=== PATIENT | female | born 1945 | race Caucasian/White ===

== ENCOUNTER 2017-06-02 11:37 | Day surgery (SDC) | payer MEDICARE ==
[~2017-06-02] VITALS: Ht 180.3 cm; Wt 78.0 kg
[~2017-06-02 11:37] MED LIST: GABAPENTIN300 MG PO; GLIPIZIDE ER2.5 MG PO; LISINOPRIL10 MG PO; ULTRAM50 MG PO; VENTOLIN HFA18 GM INH
[2017-06-02] MEDS ORDERED: NORCO 5-325 TA1 EACH PO (12:10)
--- NOTE | 2017-06-02 13:37 | NUR ---
06/02/17 1337 Dede Steele PT ARRIVED IN PACU WIDE AWAKE. ABD SOFT. BLOOD SUGAR 133.
--- NOTE | 2017-06-02 17:51 | OR ---
[facility] [address] [place], [place] [address] Signed DATE OF OPERATION: 06/02/2017 SURGEON: Keisha Mcdermott MD PREOPERATIVE DIAGNOSIS: Colon screening. POSTOPERATIVE DIAGNOSES: 1. Diverticular changes to sigmoid and transverse colon. 2. Sessile polyp at the ileocecal valve (excised). 3. Internal hemorrhoid x1. PROCEDURE: Total colonoscopy to cecum with hot snare polypectomy x1. ANESTHESIA: Intravenous sedation fentanyl 150 mcg and Versed 6 mg. INDICATION: This 71-year-old white woman is a patient of Dr. Keisha Spear. She underwent colonoscopy for screening greater than 10 years ago in [place], [place], which was said to be normal. She has no family history of colon cancer and is symptom-free currently. She does have family history of colon cancer in a paternal aunt. She is admitted at this time to undergo screening colonoscopy and understands the risks of bleeding, infection, and perforation. She has had joint implant replacement therapy and on that basis, antibiotic therapy was given preoperatively. FINDINGS: The prep was excellent. Complete colonoscopy was undertaken to the cecum. Brief entry into the ileocecal valve found it to be normal as well. A sessile polyp was noted of the ileocecal valve, which was excised with hot snare polypectomy technique. There were diverticular changes of the transverse colon and left colon and sigmoid to a degree, but not extensive. Retroflexed view confirmed an internal hemorrhoid that was not problematic. DESCRIPTION OF PROCEDURE: The patient was brought to the endoscopy suite, placed in the lateral decubitus position, and given intravenous sedation to the point of slurred speech and nystagmus. Digital rectal examination was normal. The Olympus video colonoscope was passed in the rectum and manipulated throughout the colon, ultimately intubating the cecum itself. Irrigation Electronically Signed By: KEISHA MCDERMOTT MD 06/02/17 1751 PATIENT NAME: MAYRA QUINONES OPERATIVE REPORT DATE OF : 49 PHYSICIAN: KEISHA MCDERMOTT MD REPORT #: [id number] REPORT IS CONFIDENTIAL AND NOT TO BE RELEASED WITHOUT AUTHORIZATION [facility] [address] [place], [place] [address] Signed was undertaken as needed. The prep was quite good. The ileocecal valve was normal and the scope was passed into, the ileum appeared normal. Scope was withdrawn and a sessile polyp was noted in the ileocecal valve. Narrow band imaging confirmed it to be probably an adenoma. Using hot snare polypectomy technique, it was excised. It was passed for pathology. The scope was further withdrawn from that area and examination throughout undertaken quite thoroughly. In the transverse colon, there were few diverticular changes as were present also in the sigmoid and left colon. Retroflexed view in the rectum confirmed an internal hemorrhoidal change, but no sign of thrombosis or bleeding. The scope was removed and the patient was taken to recovery room in good condition. CONCLUDING DIAGNOSES: 1. Diverticular changes, limited. 2. Sessile polyp, 1 cm at ileocecal valve, excised. 3. Internal hemorrhoids. PLAN: Recommend high-fiber diet. Recommend repeat colonoscopy in 5 years or sooner if clinically indicated. She will return to the ongoing care of Dr. Spear otherwise. Keisha Mcdermott MD JM/MODL /[id number] cc: Arnav Spear MD Electronically Signed By: KEISHA MCDERMOTT MD 06/02/17 1751 PATIENT NAME: MAYRA QUINONES Kaden OPERATIVE REPORT DATE OF : 49 PHYSICIAN: KEISHA MCDERMOTT MD REPORT #: [id number] REPORT IS CONFIDENTIAL AND NOT TO BE RELEASED WITHOUT AUTHORIZATION
== END 2017-06-02 14:00 | disposition home or self-care (01) ==
LOC: OPS 11:37 → DS 11:37 → OPS 13:00
PROVIDERS: Surgery
PROC: 0DBH8ZX Excision of Cecum, Via Natural or Artificial Opening Endoscopic, Diagnostic (ICD-10-PCS; principal; 2017-06-02 13:00)
DX: Z12.11 Encounter for screening for malignant neoplasm of colon (principal); D12.0 Benign neoplasm of cecum; K57.30 Diverticulosis of large intestine without perforation or abscess without bleeding; K64.8 Other hemorrhoids; E11.9 Type 2 diabetes mellitus without complications; J45.909 Unspecified asthma, uncomplicated; I10 Essential (primary) hypertension; K21.9 Gastro-esophageal reflux disease without esophagitis; Z87.891 Personal history of nicotine dependence; Z91.040 Latex allergy status; Z88.8 Allergy status to other drugs, medicaments and biological substances; Z91.041 Radiographic dye allergy status; Z96.653 Presence of artificial knee joint, bilateral; Z88.1 Allergy status to other antibiotic agents; Z90.49 Acquired absence of other specified parts of digestive tract; Z98.890 Other specified postprocedural states; Z79.899 Other long term (current) drug therapy
CPT/HCPCS: 88305; 99153; G0500; J2250; J3010; J7120

== ENCOUNTER 2018-06-12 12:56 | Emergency (ER) | payer MEDICARE ==
[~2018-06-12] VITALS: Ht 180.3 cm; Wt 78.0 kg
[~2018-06-12 12:56] MED LIST changes: +NORCO 5-325 TA1 EACH PO
== END 2018-06-12 14:49 | disposition home or self-care (01) ==
LOC: ED 12:56
DX: I83.813 Varicose veins of bilateral lower extremities with pain (principal); Z86.718 Personal history of other venous thrombosis and embolism; Z87.891 Personal history of nicotine dependence; Z90.49 Acquired absence of other specified parts of digestive tract; Z88.0 Allergy status to penicillin; Z88.1 Allergy status to other antibiotic agents; Z88.8 Allergy status to other drugs, medicaments and biological substances; Z91.040 Latex allergy status; Z91.048 Other nonmedicinal substance allergy status; Z79.899 Other long term (current) drug therapy
CPT/HCPCS: 93971; 99283-25

== ENCOUNTER 2020-07-30 06:18 | Day surgery (SDC) | payer MEDICARE ==
[~2020-07-30] VITALS: Ht 180.3 cm; Wt 76.0 kg
--- NOTE | ~2020-07-30 | OR ---
[facility] [address] [place], [place] [address] Draft DATE OF OPERATION: 07/30/2020 SURGEON: Keisha Mcdermott MD PREOPERATIVE DIAGNOSES: 1. History of tubular adenoma, 2018. 2. History of joint replacement. POSTOPERATIVE DIAGNOSES: 1. Sigmoid and left-sided diverticulosis. 2. Normal-appearing ileum. 3. Appendiceal orifice and nodule, soft, suggestive of inverted appendiceal base or lipoma. PROCEDURE: Total colonoscopy to cecum with biopsies. ANESTHESIA: Intravenous sedation with fentanyl 100 mcg, Versed 7 mg, preoperative clindamycin 600 mg. INDICATION: A 75-year-old white woman is a patient of Dr. Piper Spear and known to me from the past having undergone colonoscopy with excision of a tubular adenoma in 2018. She is here for surveillance colonoscopy. She has no symptoms of bleeding, diarrhea, or constipation and no family history of colon cancer. She understands risks and benefits of colonoscopy including, but not limited to bleeding, infection, and perforation risks and wishes to proceed. FINDINGS: The prep was good. Complete colonoscopy was undertaken of the cecum and intubation of the ileum was accomplished as well. There was a smooth nodule noted at the appendiceal orifice which was able to be inverted back into the appendiceal orifice largely. Biopsies were taken over that site, though it might represent an inverted appendiceal stump, though I have no information of her having had appendectomy in the past at this time. The ileum was normal. The remaining colon was normal except for diverticular changes of sigmoid and left colon. There were no signs of polyps. DESCRIPTION OF PROCEDURE: The patient was brought to the endoscopy suite and placed in lateral decubitus position, given intravenous sedation to the point of slurred speech and nystagmus with full PATIENT NAME: MAYRA QUINONES OPERATIVE REPORT DATE OF : 49 REPORT #: [id number] PHYSICIAN: KEISHA MCDERMOTT MD PCP: PIPER SPEAR MD REPORT IS CONFIDENTIAL AND NOT TO BE RELEASED WITHOUT AUTHORIZATION [facility] [address] [place], [place] [address] Draft cardiopulmonary monitoring. Digital rectal examination was normal. An Olympus video colonoscope was passed in the rectum and manipulated throughout the colon noting diverticula of the sigmoid and left colon. Scope was ultimately advanced to the cecum, prominent and notable was a smooth nodule, which was at first suggestive of polyp, but it clearly emanated from the appendiceal orifice. The biopsies including deeper biopsies were taken of the nodule. It was most consistent with lipoma. It was manipulated to essentially return to the appendiceal orifice area, but may represent either a lipoma or inverted appendiceal stump most likely. There was no stigmata of carcinoid tumor. The scope was withdrawn a bit and inserted into the ileum. The terminal ileum appeared normal. Biopsies were taken there nevertheless. The scope was then withdrawn to the cecum. The area once again evaluated and the scope then withdrawn more fully. Examination upon withdrawal of scope showed no sign of abnormality other than the diverticular changes of the left colon and sigmoid. The rectum was normal except for internal hemorrhoids. The scope was removed and the patient was taken to recovery room in good condition. CONCLUDING DIAGNOSES: 1. Diverticulosis in sigmoid and left colon. 2. Normal-appearing ileum. 3. Appendiceal orifice, submucosal soft tissue mass, possibly lipoma. PLAN: She will see us back in about 4 weeks and review her pathology visit more about the appendiceal orifice abnormality which likely is benign consequence. I would recommend a repeat colonoscopy in 5 years based on prior polyp history. MD STEPHANIE Jackson/MODL /[id number] cc: Piper Spear MD Copies: PIPER SPEAR MD PATIENT NAME: MAYRA QUINONES OPERATIVE REPORT DATE OF : 49 REPORT #: [id number] PHYSICIAN: KEISHA MCDERMOTT MD PCP: PIPER SPEAR MD REPORT IS CONFIDENTIAL AND NOT TO BE RELEASED WITHOUT AUTHORIZATION [facility] [address] [place] [address] [place], [place] [address] Draft ~ PATIENT NAME: MAYRA QUINONES OPERATIVE REPORT DATE OF : 49 REPORT #: [id number] PHYSICIAN: KEISHA MCDERMOTT MD PCP: PIPER SPEAR MD REPORT IS CONFIDENTIAL AND NOT TO BE RELEASED WITHOUT AUTHORIZATION
[2020-07-30] MEDS ORDERED: VENLAFAXINE HCL75 M1 PO (06:38)
--- NOTE | 2020-07-30 08:19 | NUR ---
07/30/20 0819 Leonarda Monaco 0808 PATIENT INTO PACU, APPEARS DROWSY, AWAKE ON AND OFF. REPORTS NO PAIN, ENCOURAGED DEEP BREATHS. APPEARS TO HAVE ACTIVE FLATUANCE. 0814 PATIENT AWAKE ON AND OFF. VSS. ENCOURAGED PATIENT TO TAKE DEEP BREATHS. CBG 214.
--- NOTE | 2020-07-30 10:22 | NUR ---
PT TAKEN TO SCOPE RM, REMAINED IN RM. PT SEEMS COMFORTABLE, ALL QUESTIONS ASKED ANSWERED. GAVE BLESSING AND WILL FOLLOW
--- NOTE | 2020-07-31 12:17 | PATH ---
[facility] [address] [place], [place] [address] Signed SPECIMEN(S): A SUBMUCOSAL LIPOMA OF CECUM BIOPSY SPECIMEN(S): B ILEUM BIOPSY SPECIMEN SOURCE: A. SUBMUCOSAL LIPOMA OF CECUM BIOPSY B. ILEUM BIOPSY CLINICAL HISTORY: Pre: Colon screening; hx of tubular adenoma 2018. Post: diverticulosis, appendicle orifice lipoma. MICROSCOPIC DESCRIPTION: Histologic sections of all submitted blocks are examined by light microscopy. These findings, together with the gross examination, support the pathologic diagnosis. FINAL PATHOLOGIC DIAGNOSIS: A. Cecum, possible submucosal lipoma, biopsy: - Superficial fragments of colonic mucosa with minimal hyperplastic-type change. - Submucosal tissue is not identified. B. Ileum, biopsy: - Small bowel mucosa with intact villous architecture. - Negative for ileitis, dysplasia or malignancy. DS:caw:C2NR GROSS DESCRIPTION: Two specimens are received in two containers, labeled "SS." A. The specimen, labeled "SS, 1," and designated on the requisition "submucosal lipoma of cecum," is received in formalin and consists of multiple butler soft tissue fragment(s) that measure less than 0.1-0.5 cm in greatest dimension. The specimen is entirely submitted in cassette (A1). B. The specimen, labeled "SS, 2," and designated on the requisition "ileum biopsy," is received in formalin and consists of one butler soft tissue fragment(s) that measure 0.4 cm in greatest dimension. The specimen is entirely submitted in cassette (B1). AI (under the direct supervision of a pathologist) The Gross Description was prepared using a voice recognition system. The report was reviewed for accuracy; however, sound-alike word errors, addition and/or deletions may occur. If there is any question about this report, please contact Client Services. PATIENT NAME: MAYRA QUINONES PATHOLOGY DATE OF : 49 REPORT #: [id number] PHYSICIAN: FAVIAN CUEVAS PCP: PIPER SHEN MD REPORT IS CONFIDENTIAL AND NOT TO BE RELEASED WITHOUT AUTHORIZATION [facility] [address] [place], [place] [address] Signed PERFORMING LABORATORY: The technical component was performed by [employer], [address] [place] [address] (Info Specialist: Steff Brown MD; CLIA# [id number]). Professional interpretation was performed by [employer], [facility], [address] [place] [address] (CLIA#: [id number]). Diagnostician: Bob Mas MD Pathologist Electronically Signed 07/31/2020 Copies: ~ PATIENT NAME: MAYRA QUINONES PATHOLOGY DATE OF : 49 REPORT #: [id number] PHYSICIAN: [facility] PCP: PIPER SHEN MD REPORT IS CONFIDENTIAL AND NOT TO BE RELEASED WITHOUT AUTHORIZATION
== END 2020-07-30 08:45 | disposition home or self-care (01) ==
LOC: DS 06:18 → OPS 06:18 → DS 06:45 → OPS 06:45
PROVIDERS: ATTEND Surgery
PROC: 0DBB8ZZ Excision of Ileum, Via Natural or Artificial Opening Endoscopic (ICD-10-PCS; principal; 2020-07-30 06:45)
DX: Z12.11 Encounter for screening for malignant neoplasm of colon (principal); K57.30 Diverticulosis of large intestine without perforation or abscess without bleeding; K63.89 Other specified diseases of intestine; E11.9 Type 2 diabetes mellitus without complications; F32.9 Major depressive disorder, single episode, unspecified; J45.909 Unspecified asthma, uncomplicated; K21.9 Gastro-esophageal reflux disease without esophagitis; I10 Essential (primary) hypertension; Z88.1 Allergy status to other antibiotic agents; Z91.040 Latex allergy status; Z88.8 Allergy status to other drugs, medicaments and biological substances; Z91.048 Other nonmedicinal substance allergy status; Z88.0 Allergy status to penicillin; Z88.6 Allergy status to analgesic agent; Z79.84 Long term (current) use of oral hypoglycemic drugs; Z87.891 Personal history of nicotine dependence; Z96.659 Presence of unspecified artificial knee joint; Z86.010 Personal history of colon polyps; Z98.890 Other specified postprocedural states
CPT/HCPCS: 99153; G0500; J2250; J3010; J7121

== ENCOUNTER 2022-05-18 09:52 | Emergency (ER) | payer MEDICARE ==
[~2022-05-18] VITALS: Ht 180.3 cm; Wt 74.8 kg
[~2022-05-18 09:52] MED LIST changes: +VENLAFAXINE HCL75 M1 PO
--- OUTSIDE RECORDS SUMMARY | 2022-05-18 09:55 | XMS ---
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 [facility]et VISIT COUNT (12 MO.) 1 ROBLES [facility] TOTAL 1 NOTE: Visits indicate total known visits. ED/UCC VISIT TRACKING (12 MO.) 05/18/2022 09:52 [facility] [place] TYPE: Emergency COMPLAINT: - BLOOD IN URINE INPATIENT VISIT TRACKING (12 MO.) No inpatient visits to display in this time frame [email or web address]
[2022-05-18] MEDS ORDERED: HYDROCODON-ACE1 EA11 PO (10:18)
[2022-05-18] MEDS ORDERED: CITALOPRAM HBR20 MG PO (10:18)
[2022-05-18] MEDS ORDERED: MACROBID 100 M100 MG PO (11:01)
== END 2022-05-18 11:31 | disposition home or self-care (01) ==
LOC: ED 09:52
DX: N30.91 Cystitis, unspecified with hematuria (principal); Z86.718 Personal history of other venous thrombosis and embolism; Z87.891 Personal history of nicotine dependence; Z88.1 Allergy status to other antibiotic agents; Z88.0 Allergy status to penicillin; Z88.8 Allergy status to other drugs, medicaments and biological substances; Z91.040 Latex allergy status; Z79.899 Other long term (current) drug therapy; Z79.84 Long term (current) use of oral hypoglycemic drugs
CPT/HCPCS: 81001; 87088; 99283

== ENCOUNTER 2024-02-21 13:15 | Observation (INO) | payer MEDICARE ==
[~2024-02-21] VITALS: Ht 152.4 cm; Wt 63.0 kg
[~2024-02-21 13:15] MED LIST changes: +BUPRENORPHINE HC2 MG SL; +CITALOPRAM HBR20 MG PO; +CYPROHEPTADINE H4 MG PO; +DULOXETINE HCL20 MG PO; +HYDROCODON-ACE1 EA11 PO; +MACROBID 100 M100 MG PO; +TRAZODONE HCL50 MG PO
[2024-02-21] MEDS ORDERED: BUPRENORPHINE HC2 MG SL (13:37)
[2024-02-21] MEDS ORDERED: ondansetron HCL 4 MG/2 ML VIAL IV ONE (13:45)
[2024-02-21] MEDS ORDERED: HYDROmorphone HCL 1 MG/ML SYR IV ONE ×2 (13:45→16:00)
[2024-02-21] MEDS ORDERED: SODIUM CHLORIDE 0.9% 1,000 ML IV PRN (13:45)
[2024-02-21 13:54] LABS: BASOPHILS 0.6 % (0-2); HEMATOCRIT 41.8 % (35.0-50.0); HEMOGLOBIN 13.8 g/dL (12.0-18.0); LYMPHOCYTES 11.7 % (24-44); MCH 31.7 (27-36); MCV 95.9 fl (81-99); MONOCYTES 7.5 % (0-12); NEUTROPHILS 80.2 % (39-80); PLATELET COUNT 265 K/uL (140-440); RBC 4.36 M/ul (4.3-5.7)
[2024-02-21 14:02] LABS: INR 1.02 (0.80-1.30)
[2024-02-21 14:07] LABS: ALBUMIN 3.3 g/dL (3.4-5.0); ALBUMIN/GLOBULIN RATIO 0.67 (1.1-2.4); ANION GAP 13.2 (7-21); BUN/CREATININE RATIO 13.09 (6.0-28.6); CALCIUM 10.2 mg/dL (8.5-10.1); CREATININE, SERUM 0.84 mg/dL (0.55-1.02); MAGNESIUM 1.5 mg/dL (1.8-2.4); POTASSIUM 4.2 mmol/L (3.5-5.1); PROTEIN, TOTAL 8.2 g/dL (6.4-8.2)
[2024-02-21 14:30] LABS: INFLUENZA B NAA NEGATIVE (NEGATIVE); RESPIRATORY SYNCYTIAL VIR NAA NEGATIVE (NEGATIVE)
[2024-02-21] MEDS ORDERED: diphenhydrAMINE HCL 50 MG/ML VIAL IV ONE (16:00)
[2024-02-21] MEDS ORDERED: methylPREDNISolone SOD SUCC 125 MG/2 ML VIAL IV ONE (16:00)
[2024-02-21] MEDS ORDERED: GLIPIZIDE ER2.5 MG PO (16:03)
[2024-02-21 17:14] LABS: BILIRUBIN, URINE NEGATIVE (negative); BLOOD/HGB, URINE NEGATIVE (Negative); KETONE, URINE SMALL (Negative); LEUK ESTERASE, URINE NEGATIVE (negative); NITRITE, URINE NEGATIVE (negative)
[2024-02-21] MEDS ORDERED: APIXABAN 5 MG TAB PO ONE (17:15)
[2024-02-21 17:23] LABS: BACTERIA, URINE RARE /hpf (negative); CASTS, URINE NONE SEEN \\lpf; COLLECTION TYPE, URINE CLEAN CATCH; CRYSTALS, URINE NONE SEEN (0-1+); EPITHELIAL CELLS, URINE SQUAMOUS 1+ /lpf (0-1+); RED BLOOD CELLS, URINE 0-1 /hpf (0-5); REFLEX CULTURE, URINE No (No); WHITE BLOOD CELLS, URINE 0-1 /HPF (0-5)
[2024-02-21] MEDS ORDERED: ALBUTEROL SULFATE 8 GM INH INH PRN (18:00)
[2024-02-21] MEDS ORDERED: INHALER, ASSIST DEVICES 1 EACH SPACER MISC ONE (18:00)
[2024-02-21] MEDS ORDERED: MAGNESIUM SULFATE 2 GM/50 ML BAG IV SCH (18:15)
[2024-02-21] MEDS ORDERED: IBLOOD GLUCOSE TEST STRIP 1 EA TEST XX PRN (18:15)
[2024-02-21] MEDS ORDERED: DEXTROSE 5% 1,000 ML IV PRN (18:15)
[2024-02-21] MEDS ORDERED: DEXTROSE 50% 50 ML SYR IV PRN ×2 (18:15)
[2024-02-21] MEDS ORDERED: GLUCAGON,HUMAN RECOMBINANT 1 MG/ML VIAL SUB-Q PRN (18:15)
[2024-02-21] MEDS ORDERED: ALBUTEROL SULFATE 0.083% 3 ML VIAL INH PRN (18:30)
[2024-02-21 18:31] VITALS: BP 115/87
--- NOTE | 2024-02-21 18:53 | NUR ---
PT BROUGHT UP TO UNIT VIA STRETCHER. REPORT RECIEVED FROM SHYLA ARANGO RN. ADMISSION COMPLETE. PT C/O 11/08 PAIN LOCATION; STERNUM. IV MAG RUNNING. SANDWICH BOX PROVIDED. PT BELONGINGS IN ROOM. BLANKET, RING, AND PHONE ON PT. PT ASSESSMENT COMPLETE. DENIES ANY NEEDS AT THIS TIME, CALL LIGHT IN REACH
--- NOTE | 2024-02-21 19:10 | NUR ---
RECEIVED REPORT FROM DAY SHIFT RN. PATIENT IS RESTING IN BED. PATIENT DENIES ANY NEEDS. CALL LIGHT IN REACH.
--- NOTE | 2024-02-21 19:35 | NUR ---
PATIENT CALLED TO USE THE BATHROOM. BEDSIDE COMMODE PER PATIENT STATING MY BACK HURT. PATIENT VOIDED 175ML YELLOW URINE. PATIENT REQUESTED PAIN MEDICATION IF IT IS AVAILABLE. PRIMARY RN NOTIFIED. WINDOW BLINDS DOWN PER PATIENT. NO FURTHER REQUEST AT THIS TIME.
[2024-02-21] MEDS ORDERED: OXYCODONE HCL 5 MG TAB PO PRN (19:45)
[2024-02-21] MEDS ORDERED: ACETAMINOPHEN 325 MG TAB PO PRN (19:45)
--- NOTE | 2024-02-21 19:45 | NUR ---
PATIENT CALLED AND REPORTED 7/10 PAIN IN HER STERNUM AND RIGHT SHOULDER. PATIENT HAS NO PAIN MEDICATION ON JUL. PLACED CALL TO MD. AFRR TO PLACE MEDICATION ORDER.
--- NOTE | 2024-02-21 20:16 | NUR ---
PT STATES SHE HAS 6/10 STERNAL PAIN, TYLENOL PROVIDED. SCHEDULED IV MED PROVIDED. PT STATES NO OTHER NEEDS AT THIS TIME. CALL LIGHT IN REACH.
[2024-02-21 20:51] VITALS: BP 133/72
[2024-02-21 21:00] VITALS: BP 133/72
[2024-02-21] MEDS ORDERED: IBLOOD GLUCOSE TEST STRIP 1 EA TEST VI SCH (21:00)
[2024-02-21] MEDS ORDERED: TRAZODONE HCL 50 MG TAB PO SCH (21:00)
[2024-02-21] MEDS ORDERED: INSULIN LISPRO 100 UNIT/ML ML SUB-Q SCH (21:00)
--- NOTE | 2024-02-21 21:10 | NUR ---
PATIENTS VITALS TAKEN AND RECORDED. INTAKE AND OUTPUT RECORDED. PATIENTS IV COMPLETED INFUSING. PATIENTS IV SL PER ORDER. PATIENT REPORTS 7/10 PAIN IN HER STERNAL AREA, PRN PAIN MEDICATION GIVEN PER ORDER. PATIENT IS ON 2L VIA NC. PATIENT ONLY REPORTS SOB WHEN TAKING A DEEP BREATH. PATIENTS PM MEDS GIVEN PER ORDER. PATIENT PROVIDED WARM PACK FOR RIGHT SHOULDER. PATIENT IS AAOX4. PATIENT DENIES ANY FURTHER NEEDS. CALL LIGHT IN REACH.
--- NOTE | 2024-02-21 22:04 | NUR ---
PATIENT IS RESTING IS BED VISITING WITH SON. PATIENT REPORTS IMPROVEMENT IN PAIN. NO FURTHER NEEDS NOTED. CALL LIGHT IN REACH.
--- NOTE | 2024-02-21 22:50 | NUR ---
CALL LIGHT ANSWERED. SBA WITH MINIMAL ASSIST TO THE BEDSISE COMMODE. PATIENT VOIDED 200ML YELLOW URINE. PATIENT DID SELF JENNIFER CARE. PATIENT IS BACK IN BED. WARM PACK PROVIDED PER PATIENT. CALL LIGHT WITHIN REACH.
[2024-02-22] VITALS (8 sets, daily range): BP systolic 107–127; BP diastolic 59–72
--- NOTE | 2024-02-22 00:09 | NUR ---
PATIENT IS RESTING IN BED WITH EYES CLOSED, RR 16. PATIENT IS ON TELE #4 NSR, HR IS 71 AND OXYGEN IS 94%. PATIENTS CALL LIGHT IS IN REACH.
--- NOTE | 2024-02-22 02:29 | NUR ---
PT CPOX 85% ON TELE, FREQUENCY CHECKER TO ROOM. PT RESTING IN BED, SNORING AUDIBLY, MOUTH OPEN. O2 IN PLACE @ 2LPM VIA NASAL CANULA. PT WAKES EASILY TO TOUCH. SLIGHTLY REPOSITIONED IN BED. SAO2 INCREASES TO 96% ON 2 LPM. ICE WATER PROVIDED. PT DENIES FURTHER NEEDS AT THIS TIME. CALL LIGHT IN REACH.
--- NOTE | 2024-02-22 02:33 | NUR ---
PATIENT REPOSITIONED IN BED. VITALS TAKEN AND RECORDED. PATIENT REMAINS ON 2L VIA NC. PATIENT DENIES ANY SOB AT REST. PATIENT RATES PAIN IN HER STERNAL AREA AT A 7/10, PRN PAIN MEDICATION GIVEN PER ORDER. PATIENT DENIES ANY FURTHER NEEDS. CALL LIGHT IN REACH.
--- NOTE | 2024-02-22 03:23 | NUR ---
PATIENT NOTED TO BE 78% ON THE CPOX TELE. PATIENT IS RESTING IN BED. PATIENT DENIES ANY SOB. PATIENT TITRATED TO 3L VIA NC. NO NEEDS NOTED. CALL LIGHT IN REACH.
--- NOTE | 2024-02-22 04:08 | NUR ---
PATIENT IS RESTING IN BED WITH EYES CLOSED, RR 15. TELE #4, HR 67, 98% ON 3L VIA NC. NAD NOTED. CALL LIGHT IN REACH.
[2024-02-22 05:22] LABS: BASOPHILS 0.2 % (0-2); HEMOGLOBIN 12.2 g/dL (12.0-18.0); LYMPHOCYTES 8.8 % (24-44); MCH 31.5 (27-36); MCV 95.3 fl (81-99); MONOCYTES 1.6 % (0-12); NEUTROPHILS 89.4 % (39-80); PLATELET COUNT 250 K/uL (140-440); RBC 3.88 M/ul (4.3-5.7); RDW 13.2 (10.5-15.0)
[2024-02-22 05:31] LABS: ANION GAP 11.4 (7-21); BUN/CREATININE RATIO 16.66 (6.0-28.6); CALCIUM 9.3 mg/dL (8.5-10.1); CREATININE, SERUM 0.9 mg/dL (0.55-1.02); MAGNESIUM 2.5 mg/dL (1.8-2.4); POTASSIUM 4.4 mmol/L (3.5-5.1)
--- NOTE | 2024-02-22 05:45 | NUR ---
LAB IN ROOM. PATIENT IS RESTING IN BED. PATIENTS VITALS TAKEN AND RECORDED. PATIENT DENIES THE NEED TO USE THE BR. PATIENTS INTAKE AND OUTPUT RECORDED. PATIENTS IV FLUSHED AND SL PER ORDER. PATIENT DENIES ANY SOB. PATIENT RATES PAIN AT A 4/10 IN STERNAL AREA AND DENIES THE NEED FOR PAIN MEDICATION AT THIS TIME. PATIENT PROVIDED WARM PACK FOR RIGHT SHOULDER PAIN. PATIENT DENIES ANY FURTHER NEEDS. CALL LIGHT IN REACH.
--- NOTE | 2024-02-22 07:29 | NUR ---
UR CLINICAL REVIEW: 2 MN FOR VERSALUS-MEETS INPT CRITERIA. WILL DISCUSS WITH . MEDICARE OBS 02/21/24 @ 1757 ORDER MATCHES REG NO AUTH REQUIRED PER MEDICARE GUIDELINES DISCHARGE TO HOME WHEN STABLE 02/23/24
--- NOTE | 2024-02-22 07:38 | NUR ---
PT RESTING EYES CLOSED AT TIME OF SHIFT REPORT, AWAKE AND INTERACTIVE NOW. AGREES SHE SLEPT WELL AND IS COMFORTABLE AT THIS TIME. BLINDS OPENED AND FRESH H20 TO BEDSIDE. SATS 97% ON 3 L02 TITRATED TO 2 L NC. PT DENIES FURTHER NEEDS AND AGREES TO CALL TO GET UP OUT OF BED.
--- NOTE | 2024-02-22 07:43 | NUR ---
PT ASKED IF SHE NEEDS ANYTHING BEFORE THIS MARKETING INTERN EXITS ROOM, SHE REPORTS 6/10 CP AFTER AGREEING SHE WAS COMFORTABLE. OFFERED TYLENOL VS OXY SHE STATES SHE PREFERS OXY "SO I CAN REST" HOSPITALIST ENTERS ROOM AND ASKS ABOUT CP SHE STATES "IT'S BETTER"
--- NOTE | 2024-02-22 08:24 | NUR ---
PT EATING BREAKFAST C/O POOR FOOD QUALITY, MENU AND ALTERNATIVE ITEMS PROVIDED. PT AGAIN AGREES SHE IS COMFORTABLE.
--- NOTE | 2024-02-22 08:35 | NUR ---
Patient called requesting bedside commode assistance. No other cares were needed after voiding.
--- NOTE | 2024-02-22 08:43 | NUR ---
PT SATS 94% ON 2 LPM TITRATED TO 1 L
[2024-02-22] MEDS ORDERED: GABAPENTIN 300 MG CAP PO SCH (09:00)
[2024-02-22] MEDS ORDERED: APIXABAN 5 MG TAB PO SCH (09:00)
--- NOTE | 2024-02-22 09:22 | NUR ---
ALERT AND ORIENTED IN BED. DEMOGRAPHICS VERIFIED WITH PATIENT. SHE LIVES IN A HOUSE, WITH 1 STEP TO GET INSIDE, WITH . STATES SHE HAS NO ISSUES GETTING INTO HER HOME. SHE HAS A WALKER "JUST IN CASE" BUT NO OTHER DME. STATES SHE REMAINS ABLE TO DRIVE AT [place]ELINE. DENIES DIFFICULTY PAYING UTILITIES, OBTAINING FOOD OR MEDICATIONS. DENIES NEEDS FROM CASE MANAGEMENT AT THIS TIME. INSTRUCTED TO NOTIFY STAFF IF THAT CHANGES, VERBALIZES UNDERSTANDING.
--- NOTE | 2024-02-22 09:38 | NUR ---
PT SATS 95% 02 DC'D. PT CONTINUES RESTING IN BED, REPORTS SHE STILL HAS AN ACHE IN HER STERNUM BUT ALSO AGREES SHE IS COMFORTABLE. FRESH H20 AND NEEDED ITEMS AT BEDSIDE
--- NOTE | 2024-02-22 10:33 | NUR ---
PATIENT GIVEN 650MG OF TYLENOL FOR 7/10 STERNAL PAIN RELATED TO BILATERAL PE'S. DR. DOWLING IN TO SEE PATIENT. PATIENT IS 96% ON ROOM AIR AND MAY BE ABLE TO DISCHARGE HOME LATER TODAY.
--- NOTE | 2024-02-22 11:20 | NUR ---
PT RESTING IN BED WATCHING TV WITHOUT C/O. SATS 92% ON RA. FAMILY IN TO SEE HER SHE DENIES NEEDS OR REQUESTS FROM THIS MANAGEMENT AIDE
--- NOTE | 2024-02-22 11:21 | EKG ---
[facility] [address] [facility] [place], [place] [address] Signed Sinus tachycardia Left axis deviation Inferior infarct , age undetermined Cannot rule out Anterior infarct , age undetermined Abnormal ECG When compared with ECG of 29-AUG-2023 14:51, No significant change was found Confirmed by Ivon Blair MD ([id number]) on 02/22/2024 11:20:52 AM Electronically Signed By: IVON LBAIR MD 02/22/24 112 PATIENT NAME: MAYRA QUINONES Electrocardiogram DATE OF : 49 PHYSICIAN: IVON BLAIR MD REPORT #: [id number] REPORT IS CONFIDENTIAL AND NOT TO BE RELEASED WITHOUT AUTHORIZATION
[2024-02-22] MEDS ORDERED: CITALOPRAM HBR10 MG PO (11:28)
[2024-02-22] MEDS ORDERED: PHARMACY RENAL DOSE ADJUSTMENT 1 DOSE MISC PO SCH (12:00)
[2024-02-22] MEDS ORDERED: ELIQUIS5 MG PO ×2 (12:30→12:31)
[2024-02-22] MEDS ORDERED: HYDROCODON-ACE1 EA10 PO (12:32)
--- NOTE | 2024-02-22 12:40 | NUR ---
DR DOWLING IN TO SEE PT SHE AGREES SHE IS READY TO DC DENIES ANY QUESTIONS OR CONCERNS
[2024-02-22] MEDS ORDERED: VICKS VAPORUB170 G1 TOP (13:00)
--- NOTE | 2024-02-22 13:00 | NUR ---
MED REC COMPLETE
--- NOTE | 2024-02-22 14:40 | NUR ---
PATIENT DISCHARGED TO HOME WITH PRESCRIPTION FOR [address] [facility] REGARDING PATIENT HOME BUPRINORPHINE PRESCRIPTION. THIS NURSE LET PHARMACIST JAMAAL KNOW THAT DR. DOWLING WROTE FOR 6 NORCO AND FOR PATIENT TO STOP HOME BUPRINORPHINE. CALL TO PAIN CLINIC PRESCRIBER DR. PATEL TO LET THEM KNOW ABOUT PATIENT'S PRESCRIPTION AND DR. DOWLING'S DISCHARGE ORDERS. COPE'S IS GOING TO REACH OUT TO PATIENT FOR FOLLOW UP.
== END 2024-02-22 13:53 | disposition home or self-care (01) ==
LOC: ED 13:15 → MS 13:16
PROVIDERS: Emergency Medicine; ADMIT Student in an Organized Health Care Education/Training Program; ATTEND Student in an Organized Health Care Education/Training Program
DX: I26.99 Other pulmonary embolism without acute cor pulmonale (principal); E11.42 Type 2 diabetes mellitus with diabetic polyneuropathy; E11.65 Type 2 diabetes mellitus with hyperglycemia; E83.42 Hypomagnesemia; Z88.0 Allergy status to penicillin; Z88.8 Allergy status to other drugs, medicaments and biological substances; Z91.040 Latex allergy status; Z79.899 Other long term (current) drug therapy; Z79.01 Long term (current) use of anticoagulants; Z87.891 Personal history of nicotine dependence
CPT/HCPCS: 36415; 71260; 74176; 80048; 80053; 81001; 83036; 83690; 83735; 83880; 84484; 85025; 85610; 85730; 87502; 93005; 93010; 94760; 96365; 96375; 96376; 99285-25; A9270; G0378; J1170; J1200; J1815; J2405; J2919; J3475; J7030; Q9967; U0002

== ENCOUNTER 2024-03-07 14:19 | Emergency (ER) | payer MEDICARE ==
[~2024-03-07] VITALS: Ht 152.4 cm; Wt 65.2 kg
[~2024-03-07 14:19] MED LIST changes: +CITALOPRAM HBR10 MG PO; +ELIQUIS5 MG PO; +HYDROCODON-ACE1 EA10 PO; +VICKS VAPORUB170 G1 TOP
--- OUTSIDE RECORDS SUMMARY | 2024-03-07 14:24 | XMS ---
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 - Patient eloped before treatment completed. - Patient with suicidal and/or homicidal ideations eloped. Details: Patient LWBS CRITERIA MET - [facility] - 2 Visits in 30 Days CARE PROVIDERS There are no care providers on record at this time. Noemy has no Care Guidelines for this patient. E.Eloy. VISIT COUNT (12 MO.) 4 [facility]. TOTAL 4 NOTE: Visits indicate total known visits. ED/UCC VISIT TRACKING (12 MO.) 03/07/2024 14:19 [facility] [place] TYPE: Emergency COMPLAINT: - SHORTNESS OF BREATH 02/21/2024 13:[address] [facility] [place] TYPE: Emergency COMPLAINT: - WEAKNESS 09/28/2023 10:56 [facility] [place] TYPE: Emergency COMPLAINT: - WEAKNESS DIAGNOSES: - Allergy status to other drugs, medicaments and biological substances - Allergy status to penicillin - COVID-19 - Latex allergy status - Other longitudinal float operator (current) drug therapy - Personal history of nicotine dependence - Presence of left artificial knee joint - Weakness 08/29/2023 14:06 [facility] [place] TYPE: Emergency COMPLAINT: - WEAKNESS DIAGNOSES: - Allergy status to analgesic agent - Allergy status to other antibiotic agents - Allergy status to other drugs, medicaments and biological substances - Allergy status to penicillin - Anorexia - Body mass index [BMI] 21.0-21.9, adult - Disappearance and of family member - Dysuria - Latex allergy status - termite 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 representative (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 - senior care (current) use of oral hypoglycemic drugs - Other shelter (current) drug therapy - Other malaise - Personal history of nicotine dependence - Type 2 diabetes mellitus without complications INPATIENT VISIT TRACKING (12 MO.) 02/21/2024 13:16 [facility] [place] TYPE: Observation COMPLAINT: - PE DIAGNOSES: - Allergy status to other drugs, medicaments and biological substances - Allergy status to penicillin - Hypomagnesemia - Latex allergy status - senior care (current) use of anticoagulants - Other shelter (current) drug therapy - Other pulmonary embolism without acute cor pulmonale - Personal history of nicotine dependence - Shortness of breath - Type 2 diabetes mellitus with diabetic polyneuropathy - Type 2 diabetes mellitus with hyperglycemia [email or web address]
[2024-03-07 14:58] LABS: BASOPHILS 0.5 % (0-2); EOSINOPHILS 1.4 % (0-6); HEMATOCRIT 35.6 % (35.0-50.0); HEMOGLOBIN 12.1 g/dL (12.0-18.0); LYMPHOCYTES 27.2 % (24-44); MCH 32.5 (27-36); MCV 95.5 fl (81-99); MONOCYTES 6.2 % (0-12); NEUTROPHILS 64.7 % (39-80); PLATELET COUNT 235 K/uL (140-440); RBC 3.73 M/ul (4.3-5.7); RDW 13.2 (10.5-15.0)
[2024-03-07] MEDS ORDERED: diphenhydrAMINE HCL 50 MG/ML VIAL IV ONE (15:00)
[2024-03-07 15:20] LABS: ALBUMIN 3.4 g/dL (3.4-5.0); ALBUMIN/GLOBULIN RATIO 0.92 (1.1-2.4); ALKALINE PHOSPHATASE 103 U/L (46-116); ALT (SGPT) 17 U/L (14-59); ANION GAP 9.6 (7-21); AST (SGOT) 17 U/L (15-37); BILIRUBIN, TOTAL 0.3 ng/dL (0.2-1.0); BUN/CREATININE RATIO 6.31 (6.0-28.6); CALCIUM 9.3 mg/dL (8.5-10.1); CARBON DIOXIDE 32 mmol/L (21-32); CHLORIDE 100 mmol/L (98-107); CREATININE, SERUM 0.95 mg/dL (0.55-1.02); GLOMERULAR FILTRATION RATE,EST 62 mL/min (>60); POTASSIUM 3.6 mmol/L (3.5-5.1); PROTEIN, TOTAL 7.1 g/dL (6.4-8.2); UREA NITROGEN 6 mg/dL (7-18)
[2024-03-07 15:44] LABS: BILIRUBIN, URINE NEGATIVE (negative); BLOOD/HGB, URINE LARGE (Negative); KETONE, URINE NEGATIVE (Negative); LEUK ESTERASE, URINE LARGE (negative); NITRITE, URINE NEGATIVE (negative)
[2024-03-07 15:51] LABS: CASTS, URINE NONE SEEN \\lpf; CRYSTALS, URINE NONE SEEN (0-1+); EPITHELIAL CELLS, URINE SQUAMOUS 1+ /lpf (0-1+); RED BLOOD CELLS, URINE 0-1 /hpf (0-5); WHITE BLOOD CELLS, URINE >50 /HPF (0-5)
[2024-03-07 15:52] LABS: COLLECTION TYPE, URINE CLEAN CATCH; REFLEX CULTURE, URINE Yes (No)
[2024-03-07 15:53] LABS: BACTERIA, URINE 1+ /hpf (negative)
[2024-03-07] MEDS ORDERED: BACTRIM DS TAB1 EACH PO (16:35)
[2024-03-07 16:47] VITALS: BP 117/56
--- NOTE | 2024-03-09 15:48 | EKG ---
[facility] [address] [facility] [place] [address] Signed Normal sinus rhythm Left axis deviation Possible Anterolateral infarct (cited on or before 21-FEB-2024) Abnormal ECG When compared with ECG of 21-FEB-2024 13:52, No significant change was found Confirmed by Carlito Blair MD ([id number]) on 03/09/2024 3:47:57 PM Electronically Signed By: CARLITO BLAIR MD 03/09/24 1548 PATIENT NAME: MAYRA QUINONES GWEN Electrocardiogram DATE OF : 49 PHYSICIAN: CARLITO BLAIR MD REPORT #: [id number] REPORT IS CONFIDENTIAL AND NOT TO BE RELEASED WITHOUT AUTHORIZATION
== END 2024-03-07 16:48 | disposition home or self-care (01) ==
LOC: ED 14:19
PROVIDERS: Emergency Medicine
DX: N39.0 Urinary tract infection, site not specified (principal); E11.9 Type 2 diabetes mellitus without complications; Z87.891 Personal history of nicotine dependence; Z96.652 Presence of left artificial knee joint; Z88.0 Allergy status to penicillin; Z88.8 Allergy status to other drugs, medicaments and biological substances; Z88.1 Allergy status to other antibiotic agents; Z91.040 Latex allergy status; Z91.041 Radiographic dye allergy status; Z79.01 Long term (current) use of anticoagulants; Z79.899 Other long term (current) drug therapy
CPT/HCPCS: 36415; 71260; 80053; 81001; 83880; 84484; 85025; 87088; 87502; 93005; 93010; 93971; 99285-25; J1200; Q9967; U0002

== ENCOUNTER 2024-09-24 11:05 | Emergency (ER) | payer MEDICARE ==
[~2024-09-24] VITALS: Ht 152.4 cm; Wt 65.3 kg
[~2024-09-24 11:05] MED LIST changes: +BACTRIM DS TAB1 EACH PO
[2024-09-24 13:00] VITALS: BP 112/80
== END 2024-09-24 13:17 | disposition home or self-care (01) ==
LOC: ED 11:05
DX: M54.2 Cervicalgia (principal); R51.9 Headache, unspecified; T36.0X5A Adverse effect of penicillins, initial encounter; T36.1X5A Adverse effect of cephalosporins and other beta-lactam antibiotics, initial encounter; E11.9 Type 2 diabetes mellitus without complications; J45.909 Unspecified asthma, uncomplicated; Z79.899 Other long term (current) drug therapy; Z88.1 Allergy status to other antibiotic agents; Z88.5 Allergy status to narcotic agent; Z91.040 Latex allergy status; Z91.041 Radiographic dye allergy status; Z88.8 Allergy status to other drugs, medicaments and biological substances; Z87.891 Personal history of nicotine dependence
CPT/HCPCS: 70450; 99283-25

== ENCOUNTER 2025-02-24 20:06 | Inpatient (IN) | payer MEDICARE ==
[~2025-02-24] VITALS: Ht 152.4 cm; Wt 69.3 kg
[2025-02-24] MEDS ORDERED: IBLOOD GLUCOSE TEST STRIP 1 EA TEST VI ONE (20:15)
[2025-02-24] MEDS ORDERED: ASPIRIN 81 MG CHEW PO ONE (21:15)
[2025-02-24 21:19] LABS: BASOPHILS 0.6 % (0.1-1.2); EOSINOPHILS 0.4 % (0.7-5.8); LYMPHOCYTES 14.1 % (19.3-51.7); MCH 30.1 PG (25.6-32.2); MCHC 31.1 g/dL (32.2-35.5); MCV 96.9 fL (79.4-94.8); MONOCYTES 9.6 % (4.7-12.5); NEUTROPHILS 74.9 % (34.0-71.1); RBC 3.55 M/uL (3.93-5.22)
[2025-02-24 21:29] LABS: INR 1.25 (0.80-1.30); PROTIME 14.9 Sec (11.2-14.2)
[2025-02-24 21:44] LABS: ALT (SGPT) 8.0 U/L (14-59); AST (SGOT) 13.0 U/L (15-37); GLOMERULAR FILTRATION RATE,EST 82.0 mL/min (>60); PROTEIN, TOTAL 6.2 g/dL (6.4-8.2); UREA NITROGEN 12.0 mg/dL (7-18)
[2025-02-24] MEDS ORDERED: PREDNISONE5 MG PO (21:44)
[2025-02-24] MEDS ORDERED: FLUOXETINE HCL10 MG PO (21:44)
[2025-02-24 22:27] LABS: BLOOD/HGB, URINE NEGATIVE (Negative); KETONE, URINE NEGATIVE (Negative); LEUK ESTERASE, URINE NEGATIVE (negative); NITRITE, URINE NEGATIVE (negative)
[2025-02-24 22:42] LABS: AMPHETAMINES, URINE NEGATIVE (NEGATIVE); BARBITURATES, URINE NEGATIVE (NEGATIVE); BENZODIAZEPINE, URINE NEGATIVE (NEGATIVE); CANNABINOID, URINE NEGATIVE (NEGATIVE); COCAINE, URINE NEGATIVE (NEGATIVE); ECSTASY, URINE NEGATIVE (NEGATIVE); FENTANYL, URINE NEGATIVE (NEGATIVE); METHADONE, URINE NEGATIVE (NEGATIVE); OPIATES, URINE NEGATIVE (NEGATIVE); OXYCODONE, URINE NEGATIVE (NEGATIVE); PHENCYCLIDINE, URINE NEGATIVE (NEGATIVE)
--- NOTE | 2025-02-24 23:59 | NUR ---
PATIENT ARRIVES TO MS FLOOR VIA STRETCHER. REPORT RECEIVED FROM LATA WONG. ASSESSMENT COMPLETED, PATIENT ORIENTED TO ROOM. FAMILY AT BEDSIDE. CALL LIGHT IN REACH
[2025-02-25] VITALS (13 sets, daily range): BP systolic 94–117; BP diastolic 48–64
--- NOTE | 2025-02-25 00:05 | NUR ---
PATIENT ORIENTED TO ROOM, PATIENT STATED NEED FOR RESTROOM, BSC PROVIDED. STBY ASSIST, VOID MEASURED AND RECORDED. PATIENT BACK TO BED, FALL MATS IN PLACE, BED ALARM ON, WARM BLANKET PROVIDED. NO FURTHER NEEDS IDENTIFIED, CALL LIGHT IN REACH, FAMILY AT BEDSIDE.
--- NOTE | 2025-02-25 01:44 | NUR ---
TELE #9 PLACED ON PT. PATIENT LAYING IN BED VISITING WITH FAMILY. NO NEEDS IDENTIFIED AT THIS TIME. CALL LIGHT IN REACH.
--- NOTE | 2025-02-25 02:20 | NUR ---
VS OBTAINED AND RECORDED. PATIENT LAYING ON BACK IN BED WTIH EYES OPEN, FAMILY LEFT UNIT. NO FURTHER NEEDS IDENTEFIED, CALL LIGHT IN REACH.
--- NOTE | 2025-02-25 06:05 | NUR ---
PATIENT RESTING IN BED WITH EYES CLOSED, RESPIRATIONS EVEN AND UNLABORED. PATIENT EASILY AROUSED FOR NEURO ASSESSMENT. PATIENT ALERT AND ORIENTED EXCEPT TO MONTH. NO OTHER NEEDS IDENTIFIED, CALL LIGHT IN REACH.
--- NOTE | 2025-02-25 07:45 | NUR ---
Patient resting in bed, she easily wakes to verbal stimuli. Patient reports she slept well last night, no notable distress. Patient is on 1L oxygen per nc, respirations non labored. Patient's speech is clear and appropriate. Call light within reach, bed alarm intact.
[2025-02-25] MEDS ORDERED: DEXTROSE 5% 1,000 ML IV PRN (08:15)
[2025-02-25] MEDS ORDERED: IBLOOD GLUCOSE TEST STRIP 1 EA TEST XX PRN (08:15)
[2025-02-25] MEDS ORDERED: ACETAMINOPHEN 325 MG TAB PO PRN (08:15)
[2025-02-25] MEDS ORDERED: DEXTROSE 50% 50 ML SYR IV PRN ×2 (08:15)
[2025-02-25] MEDS ORDERED: GLUCAGON,HUMAN RECOMBINANT 1 MG/ML VIAL SUB-Q PRN (08:15)
[2025-02-25 08:34] LABS: CHOLESTEROL/HDL RATIO 2.1; LDL CHOLESTEROL 90.0 mg/dL (< 129); NON-HDL CHOLESTEROL 98.0; VLDL CHOLESTEROL 7.0
--- NOTE | 2025-02-25 10:01 | NUR ---
pt resting in bed, visitors in the room. pt requested hot water for mint tea - i got that for her. cleaned up room and took out trash. call light within reach, pt reported needing nothing more at this time.
[2025-02-25] MEDS ORDERED: ALBUTEROL SULFATE 0.083% 3 ML VIAL INH PRN (10:30)
[2025-02-25] MEDS ORDERED: ELIQUIS5 MG PO (11:15)
--- NOTE | 2025-02-25 11:32 | NUR ---
PT HAD AN IV COME OUT - COMPLETED A COMPLETE LINEN CHANGE. CLEANED UP ROOM, TOOK TRASH OUT AND PICKED UP GARBAGE. TWO VISITORS IN THE ROOM. PT WORKING WITH PHYSICAL THERAPY. CALL LIGHT RETURNED TO BED FOR WHEN PT RETURNS.
[2025-02-25] MEDS ORDERED: PHARMACY RENAL DOSE ADJUSTMENT 1 DOSE MISC PO SCH (12:00)
[2025-02-25] MEDS ORDERED: INSULIN LISPRO 100 UNIT/ML ML SUB-Q SCH (12:00)
[2025-02-25] MEDS ORDERED: IBLOOD GLUCOSE TEST STRIP 1 EA TEST VI SCH (12:00)
--- NOTE | 2025-02-25 12:27 | NUR ---
Patient awake, alert and oriented x3, no distress. Patient placed on room air, respirations non labored, sp02 93%. Patient eating lunch, she is able to eat independently, swallow intact. Patient denies pain. Call light within reach.
--- NOTE | 2025-02-25 12:35 | NUR ---
Updated Dr. Berman regarding blood sugar of 420, then recheck of 377. New verbal order received for and additional 5 unis of short acting insulin sub-q once/now.
[2025-02-25] MEDS ORDERED: INSULIN LISPRO 100 UNIT/ML ML SUB-Q ONE (12:45)
--- NOTE | 2025-02-25 13:37 | NUR ---
PT RESTING WITH HEAD BACK IN BED. CALL LIGHT WITHIN REACH. GOT PT A WARM BLANKET REQUESTED. NO VISITORS IN ROOM. PT HAS FRESH TEA AND WATER BY HER BED AND IS REQUESTING NOTHING MORE AT THIS TIME.
--- NOTE | 2025-02-25 13:39 | NUR ---
PT REQUESTED WARM BLANKET.
--- NOTE | 2025-02-25 14:11 | NUR ---
Admin tylenol 650mg po for reports of 6/10 headache.
[2025-02-25] MEDS ORDERED: GABAPENTIN 300 MG CAP PO SCH (15:00)
[2025-02-25] MEDS ORDERED: BUPRENORPHINE HC2 MG SL (16:38)
--- NOTE | 2025-02-25 16:39 | NUR ---
MED REC COMPLETE
--- NOTE | 2025-02-25 17:52 | NUR ---
Patient resting in bed, alert and oriented x3, no acute distress. Patient is on room air, respirations non labored, sp02 93%. Patient's speech clear and appropriate. Bed denies needs, call light within reach.
--- NOTE | 2025-02-25 18:42 | NUR ---
PT RESTING IN BED. SHE COMPLAINED OF DRY HANDS, SO I GOT HER SOME LOTION. PT HAS WATER NEXT TO HER BED, AND CALL LIGHT WITHIN REACH. PT REPORTS NEEDING NOTHING MORE AT THIS TIME. FALL MATS ARE DOWN FOR SAFETY.
--- NOTE | 2025-02-25 19:14 | NUR ---
REPORT RECIEVED FROM LATA MESA. PATIENT UP TO BATHROOM VIA SBA. PATIENT DENIES ANY PAIN OR NEEDS AT THIS TIME. FRESH ICE WATER PROVIDED. PATIENT FAMILY IN ROOM TO SEE PATIENT. SCD'S PLACED. CALL LIGHT AND PERSONAL BELONGINGS ARE WITHIN REACH. CPOX AT BEDSIDE.
--- NOTE | 2025-02-25 20:12 | NUR ---
PATIENT RESTING IN BED WITH HOB ELEVATED. PATIENT VISITING WITH FAMILY AT BEDSIDE. CBG CHECKED AND WAS 273. VITAL SIGNS TAKEN AND ARE STABLE. PATIENT REQUESTING TYLENOL AND MELATONIN WITH NIGHT MEDICATIONS. PATIENT WITHOUT FURTHER NEEDS AT THIS TIME. CALL LIGHT AND PERSONAL BELONGINGS ARE WITHIN REACH.
[2025-02-25] MEDS ORDERED: TRAZODONE HCL 50 MG TAB PO SCH (21:00)
[2025-02-25] MEDS ORDERED: INSULIN GLARGINE-YFGN 100 UNIT/ML ML SUB-Q SCH (21:00)
[2025-02-25] MEDS ORDERED: MELATONIN 3 MG TAB PO PRN (21:00)
--- NOTE | 2025-02-25 21:51 | NUR ---
PATIENT ASSESSMENT COMPLETED. PATIENT MEDICATED PER EMAR. PATIENT SITTING UP WATCHING TV. IV FLUSHED WITH 10ML OF NS, DRESSING IS INTACT. PATIENT AT 90% ON ROOM AIR. 1L NC PROVIDED TO PATIENT FOR SLEEPING. FRESH ICE WATER AND APPLE SAUCE PROVIDED. SCD'S ON. PATIENT IS WITHOUT FURTHER NEEDS AT THIS TIME. CALL LIGHT AND PERSONAL BELONGINGS ARE WITHIN REACH.
--- NOTE | 2025-02-25 22:25 | NUR ---
IN ROOM TO CHANGE PATIENT'S TELE BATTERY. PATIENT UP TO BATHROOM VIA SBA. BLOOD PRESSURE RECHECKED DUE TO LAST BLOOD PRESSURE BEING SLIGHTLY LOW. PATIENT'S NEW BLOOD PRESSURE 117/61 WITH A MAP OF 75. SCD'S PLACED BACK ON PATIENT. PATIENT WITHOUT FURTHER NEEDS AT THIS TIME. CALL LIGHT AND PERSONAL BELONGINGS ARE WITHIN REACH. PATIENT IS ON 1L NC FOR BEDTIME AND IS AT 94%, CPOX AT BEDSIDE.
[2025-02-26] VITALS (11 sets, daily range): BP systolic 100–120; BP diastolic 50–64
--- NOTE | 2025-02-26 00:44 | NUR ---
PATIENT RESTING IN BED WITH HOB ELEVATED. PATIENT RESTING WITH EYES CLOSED. EVEN AND UNLABORED RESPIRATIONS NOTED. PATIENT IS 93% ON 1LNC. CPOX AT BESIDE. CALL LIGHT AND PERSONAL BELONGINGS ARE WITHIN REACH.
--- NOTE | 2025-02-26 02:20 | NUR ---
PATIENT RESTING IN BED WITH HOB ELEVATED, EYES CLOSED, EVEN AND UNLABORED RESPIRATIONS NOTED. SCHEDULED MEDICATION NOT GIVEN AT THIS TIME DUE TO PATIENT SLEEPING AND APPEAR TO BE COMFORTABLE. PATIENT IS 95% ON 2L NC, CPOX AT BEDSIDE. CALL LIGHT AND PERSONAL BELONINGS ARE WITHIN REACH.
--- NOTE | 2025-02-26 03:50 | NUR ---
PATIENT RESTING IN BED ON HER BACK WITH HER EYES CLOSED. EVEN AND UNLABORED RESPIRATIONS NOTED. CALL LIGHT AND PERSONAL BELONGINGS ARE WITHIN REACH. CPOX AT BEDSIDE.
[2025-02-26 05:14] LABS: BASOPHILS 0.1 % (0.1-1.2); EOSINOPHILS 0 % (0.7-5.8); LYMPHOCYTES 12.6 % (19.3-51.7); MCH 30.4 PG (25.6-32.2); MCHC 32.6 g/dL (32.2-35.5); MCV 93.2 fL (79.4-94.8); MONOCYTES 6.0 % (4.7-12.5); NEUTROPHILS 80.7 % (34.0-71.1); RBC 3.65 M/uL (3.93-5.22)
--- NOTE | 2025-02-26 05:16 | NUR ---
LAB IN ROOM FOR MORNING BLOOD DRAW. THIS RN IN ROOM TO TAKE VITAL SIGNS AND ADMINISTER SCHEDULED MEDICATION. PATIENT STATES SHE DOES NOT WANT TO TAKE THE MEDICATION AT THIS TIME AND THAT HER PAIN IS A "0 RIGHT NOW". VITAL SIGNS TAKEN AND ARE STABLE. PATIENT REQUESTING TO GO BACK TO SLEEP AND IS WITHOUT FURTHER NEEDS AT THIS TIME. CALL LIGHT AND PERSONAL BELONGINGS ARE WITHIN REACH.
[2025-02-26 05:29] LABS: GLOMERULAR FILTRATION RATE,EST 90.0 mL/min (>60); UREA NITROGEN 19.0 mg/dL (7-18)
--- NOTE | 2025-02-26 07:40 | NUR ---
PT RESTING EYES CLOSED AT TIME OF SHIFT REPORT, LEFT UNDISTURBED. FRESH H20 TO BEDSIDE CALL LIGHT IN REACH.
--- NOTE | 2025-02-26 07:43 | NUR ---
THIS MEDICAL SAFETY DIRECTOR IN TO DO MORNING BLOOD SUGAR, DONE AND CHARTED. PATIENT UP TO BATHROOM, SBA. RN IN ROOM AT THIS TIME. WHITE BOARD UPDATED. CALL LIGHT IN REACH.
--- NOTE | 2025-02-26 07:51 | NUR ---
PT AWAKE NOW AND UP TO TOILET AND DO MORNING CARES. PT IS AMBULATING INDEPENDANTLY STEADY ON HER FEET. TO THE CHAIR FOR MORNING MEAL. DENIES FURTHER NEEDS AT THIS TIME
--- NOTE | 2025-02-26 08:36 | NUR ---
PT REPORTS SHE IS "STARTING TO HURT" BUPRENORPHINE ADMINISTERED EARLY TO ACCOMODATE, PREVIOUS 2 DOSES WERE REFUSED.
[2025-02-26] MEDS ORDERED: FLUOXETINE HCL 10 MG CAP PO SCH (09:00)
--- NOTE | 2025-02-26 09:24 | NUR ---
PT CONTINUES UP IN THE CHAIR VISITING WITH FAMILY X2. SHE REPORTS N&T RUE WHICH IS NEW FOR HER, DENIES OTHER NEURO CHANGES CURRENTLY. CVA EDUCATION PROVIDED PT IS RECEPTIVE AND ASKS APPROPRIATE QUESTIONS.
--- NOTE | 2025-02-26 10:08 | NUR ---
PATIENT SITTING IN CHAIR AT THIS TIME. VITALS AND I&O'S DONE AND CHARTED. PATIENT TRANSFERED TO BED, SBA. WARM BLANKET GIVEN. CALL LIGHT IN REACH. NO FURTHER NEEDS AT THIS TIME. VISITORS IN ROOM.
--- NOTE | 2025-02-26 10:42 | EKG ---
[facility] [address] [facility] [place], [place] [address] Signed Sinus tachycardia Left axis deviation Anterolateral infarct (cited on or before 21-FEB-2024) Abnormal ECG When compared with ECG of 07-MAR-2024 14:50, Questionable change in initial forces of Lateral leads Confirmed by Aldo Luevano DO ([id number]) on 02/26/2025 10:42:44 AM Electronically Signed By: ALDO LUEVANO DO 02/26/25 1042 PATIENT NAME: MAYRA QUINONES GWEN Electrocardiogram DATE OF : 49 PHYSICIAN: ALDO LUEVANO DO REPORT #: [id number] REPORT IS CONFIDENTIAL AND NOT TO BE RELEASED WITHOUT AUTHORIZATION
[2025-02-26] MEDS ORDERED: LIDOCAINE HCL 1% 5 ML SDV XX ONE (10:45)
[2025-02-26] MEDS ORDERED: TRIAMCINOLONE ACET 40 MG/ML VIAL 1 ML XX ONE (10:45)
--- NOTE | 2025-02-26 11:04 | NUR ---
DR LUEVANO IN TO SEE PT AGAIN ADMINISTERS A STEROID SHOT IN RIGHT SHOULDER. PROCEEDURE WELL TOLERATED PT STATES SHE DIDN'T EVEN FEEL IT. FAMILY X4 CONTINUE IN THE ROOM
--- NOTE | 2025-02-26 13:32 | NUR ---
CARE COORDINATED BETWEEN IMAGING AND DR LUEVANO R/T CT SCAN AND PT ALLERGY TO CONTRAST. PT ISN'T SURE SHE IS EVEN ALLERGIC BUT IS UNCERTAIN PT TO BE PREMEDICATED FOR SAFETY. NOTIFIED PT OF PLAN AND SCAN SHOULD BE AT 1730. PT VERBALIZES UNDERSTANDING
--- NOTE | 2025-02-26 13:41 | NUR ---
PATIENT SITTING UP IN BED AT THIS TIME. VITALS AND I&O'S DONE AND CHARTED. RN AT BEDSIDE. CALL LIGHT IN REACH. NO FURTHER NEEDS AT THIS TIME.
--- NOTE | 2025-02-26 14:45 | NUR ---
PT UP IN THE ROOM INDEPENANTYLY SON IS PRESENT. TELE DC'D PER ORDERS PT REMINDED OF UPCOMING CT SCAN AT 1730. FRESH H20 TO BEDSIDE DENIES OTHE NEEDS
--- NOTE | 2025-02-26 14:59 | NUR ---
PT CONTINUES TO DENY ANY CHANGE TO HER NEURO STATUS THIS SHIFT. SHE HAS SOME NUMBNESS IN HER RIGHT ARM THAT STARTED PRIOR TO HOSPITALIZATION NO OTHER ABNORMALITY NOTED ON ASSESSMENT.
--- NOTE | 2025-02-26 16:57 | NUR ---
PT IV SITE LEAKING DURING SALINE FLUSH DC'D AND NEW SITE ESTABLISHED. UP TO TOILET THEN TO BED FOR EVENING MEAL ANTICIPATE C/T AT 1730. GRANDDAUGHTER IS PRESENT IN THE ROOM. FURTHER NEEDS DENIED
--- NOTE | 2025-02-26 18:05 | NUR ---
PATIENT SITTINT UP IN BED WATCHING TV, VISITOR IN ROOM. VITALS AND I&O'S DONE AND CHARTED. FRESH WATER AND WARM BLANKET GIVEN. CALL LIGHT IN REACH. NO FURTHER NEEDS AT THIS TIME.
--- NOTE | 2025-02-26 18:41 | NUR ---
PT TO C/T VIA W/C
--- NOTE | 2025-02-26 19:43 | NUR ---
awake, alert and oriented. on room air, CPOX on at bedside, sats WNL. Cooperative with vitals and assessments. Lungs clear dim at bases, SL patent abd soft, radha, LBM today. no edema to ankles, moves all extremities well. scds on. hot tea given on requests, no c/o pain or diabetic issues at this time. family rooming in.
[2025-02-26] MEDS ORDERED: GABAPENTIN 300 MG CAP PO SCH (21:00)
[2025-02-26] MEDS ORDERED: INSULIN GLARGINE-YFGN 100 UNIT/ML ML SUB-Q SCH (21:00)
--- NOTE | 2025-02-26 21:30 | NUR ---
Patient awake, alert and oriented x3, no acute distress. Patient's vital signs are stable, sp02 93% on room air. Patient declined her scheduled buprenorphine. Patient denies acute needs. Fresh water provided. Call light wtihin pt reach.
--- NOTE | 2025-02-26 23:15 | NUR ---
RESTING, EYES CLOSED, NO S/SX DISTRESS, CPOX ON AT BEDSIDE, SCDS OFF, FAMILY ROOMING IN
--- NOTE | 2025-02-27 02:49 | NUR ---
Resting, eyes closed, on room air, cpox on at bedside, no s/sx distress. scds off, family rooming in
--- NOTE | 2025-02-27 04:19 | NUR ---
CPOX going off, desatted to 87%, CPOX at bedside. on room air. Awakens easily, goes up to 93% inmediately
[2025-02-27 04:38] VITALS: BP 104/56
[2025-02-27 04:45] VITALS: BP 104/56
--- NOTE | 2025-02-27 06:43 | NUR ---
Awakens easily, denies CP or SOB, MRI form completed and faxed. Denies need for buphrenorphine again. Has declined [id number] and 0600 doses. "Im ok, Judson not in pain right now" stated. CPOX at bedside, Pt on room air. Has slept most of this shift, voided QS. tolerating sips of fluids. no n/v. Family rooming in
--- NOTE | 2025-02-27 07:22 | NUR ---
PT AND GRANDDAUGHTER SLEEPING AT TIME OF SHIFT REPORT, LEFT UNDISTURBED. QUIET ALERT AT THIS TIME AGREES SHE IS COMFORTABLE. READER BOARD COMPLETE, ROOM CLEAN, FRESH H20 TO BEDSIDE. PT DENIES OTHER NEEDS AT THIS TIME.
[2025-02-27] MEDS ORDERED: ASPIRIN 81 MG CHEW PO SCH (08:00)
--- NOTE | 2025-02-27 08:13 | NUR ---
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 MEDICARE INPT 02/25/25 @ 0806. ON FIRST LEVEL REVIEW ONLY MEETS OBS, CASE SENT TO [facility] FOR REVIEW NO AUTH REQUIRED PER MEDICARE GUIDELINES DISCHARGE TO HOME WITH HHPT VS OPPT
[2025-02-27] MEDS ORDERED: CLOPIDOGREL BISULFATE 75 MG TAB PO SCH (09:00)
--- NOTE | 2025-02-27 09:07 | NUR ---
PT EATS MOST OF MORNING MEAL REMAINS RESTING IN BED FAMILY PRESENT X3. PT REPORTS HER R SHOULDER FEELS SOMEWHAT BETTER THAN YESTERDAY BUT IS STILL SORE. PT DENIES ANY NEW NEURO DEFICITS, ASSESSMENT IS UNCHANGED FROM YESTERDAY. PT'S STORY OF R ARM NUMBNESS HAS CHANGED HOWEVER, YESTERDAY IT WAS DESCRIBED NEW TO THIS EPISODE, TODAY SHE DESCRIBES IT DUE TO CARPATUNNEL. NO WEAKNESS OR CHANGE IN ROM TO THE LUE.
--- NOTE | 2025-02-27 09:34 | NUR ---
INTO TO SEE PATIENT. PERSONAL HEALTH INFORMATION REVIEWED. PATIENT FAMILY AT BEDSIDE. SHE LIVES AT HOME WITH HER AND KIDS MOVING INTO HER HOUSE SOON. COUPLE STEPS IN AND RAILS ON BOTH SIDES. SHE DOES NOT USE ANY DME AT THIS POINT BUT DOES HAVE A WALKER, CANE AND WHEELCHAIR AT HOME. NO OXYGEN OR CPAP. PATIENT DOES NOT DRIVE AT THIS TIME. DRIVES HER. DENIES ANY DIFFCULTY PAYING UTLITIES OR OBTAINING FOOD. NO FUTHER CM NEEDS.
--- NOTE | 2025-02-27 09:43 | NUR ---
PT UP WORKING WITH PT/OT AT THIS TIME
[2025-02-27 09:59] VITALS: BP 115/58
--- NOTE | 2025-02-27 10:39 | NUR ---
MRI IS HERE TO TAKE PATIENT FOR MRI.
--- NOTE | 2025-02-27 10:40 | NUR ---
PT TO MRI VIA W/C
[2025-02-27 10:41] VITALS: BP 115/58
[2025-02-27] MEDS ORDERED: LIDOCAINE HCL 4% 1 EACH PATCH TD SCH (10:44)
--- NOTE | 2025-02-27 11:53 | NUR ---
CALL FROM DR. LUEVANO, MRI IS CLEAR AND HE WILL DISCHARGE PATIENT. PATIENT AND PRIMARY NURSE NOTIFIED.
[2025-02-27] MEDS ORDERED: CLOPIDOGREL75 MG PO (12:01)
[2025-02-27] MEDS ORDERED: LIPITOR40 MG PO (12:02)
[2025-02-27] MEDS ORDERED: ASPIRIN81 MG PO (12:02)
--- NOTE | 2025-02-27 12:07 | NUR ---
SL DC'D CATH INTACT SITE UNREMARKABLE
[2025-02-27 13:09] VITALS: BP 128/75
[2025-02-27] MEDS ORDERED: LIDOCAINE PATCH REMOVAL 1 EA TD SCH (21:00)
[2025-02-28 10:22] LABS: PROTEIN S,TOTAL ANTIGEN 144 % (63-126)
[2025-02-28 12:27] LABS: ANTITHROMBIN, ENZYMAT ACTIVITY 107 % (76-128)
[2025-02-28 13:03] LABS: PROTEIN C FUNCTIONAL 147 % (83-168)
== END 2025-02-27 13:15 | disposition home health service (06) | DRG 69 ==
LOC: ED 20:06 → MS 20:07
PROVIDERS: Emergency Medicine; ADMIT Student in an Organized Health Care Education/Training Program; ATTEND Student in an Organized Health Care Education/Training Program
PROC: 3E0U33Z Introduction of Anti-inflammatory into Joints, Percutaneous Approach (ICD-10-PCS; principal; 2025-02-26)
PROC: 3E0U3BZ Introduction of Anesthetic Agent into Joints, Percutaneous Approach (ICD-10-PCS; 2025-02-26)
DX: G45.9 Transient cerebral ischemic attack, unspecified (principal); E11.40 Type 2 diabetes mellitus with diabetic neuropathy, unspecified; M19.011 Primary osteoarthritis, right shoulder; M67.813 Other specified disorders of tendon, right shoulder; G89.29 Other chronic pain; E11.65 Type 2 diabetes mellitus with hyperglycemia; F32.9 Major depressive disorder, single episode, unspecified; Z96.642 Presence of left artificial hip joint; Z86.711 Personal history of pulmonary embolism; Z86.718 Personal history of other venous thrombosis and embolism; Z87.891 Personal history of nicotine dependence; Z79.01 Long term (current) use of anticoagulants; Z88.1 Allergy status to other antibiotic agents; Z88.0 Allergy status to penicillin; Z88.6 Allergy status to analgesic agent; Z88.8 Allergy status to other drugs, medicaments and biological substances; Z91.040 Latex allergy status; Z91.041 Radiographic dye allergy status; Z79.52 Long term (current) use of systemic steroids; Z79.84 Long term (current) use of oral hypoglycemic drugs
CPT/HCPCS: 36415; 51701; 70450; 70496; 70498; 70551; 71045; 71260; 73030; 80048; 80053; 80061; 80307; 81003; 81241; 83036; 83735; 84484; 85025; 85300; 85303; 85305; 85610; 85730; 93005; 93010; 93306; 94762; 94799; 96374; 96375; 97116; 97161; 97165; 97530; 97535; 99285-25; A9270; G0378; J1200; J1815; J2919; J3301; J3490; Q3014; Q9967

== ENCOUNTER 2025-05-05 10:43 | Emergency (ER) | payer MEDICARE ==
[~2025-05-05] VITALS: Ht 152.4 cm; Wt 67.5 kg
[~2025-05-05 10:43] MED LIST changes: +ASPIRIN81 MG PO; +CLOPIDOGREL75 MG PO; +FLUOXETINE HCL10 MG PO; +LIPITOR40 MG PO; +PREDNISONE5 MG PO
[2025-05-05 11:33] LABS: BASOPHILS 1.0 % (0.1-1.2); EOSINOPHILS 1.3 % (0.7-5.8); LYMPHOCYTES 17.8 % (19.3-51.7); MCH 30.2 PG (25.6-32.2); MCHC 32.3 g/dL (32.2-35.5); MCV 93.5 fL (79.4-94.8); MONOCYTES 8.7 % (4.7-12.5); NEUTROPHILS 70.9 % (34.0-71.1); RBC 3.98 M/uL (3.93-5.22)
[2025-05-05 12:14] LABS: ALT (SGPT) 14 U/L (14-59); AST (SGOT) 19 U/L (15-37); GLOMERULAR FILTRATION RATE,EST 85 mL/min (>60); PROTEIN, TOTAL 7.2 g/dL (6.4-8.2); UREA NITROGEN 10 mg/dL (7-18)
[2025-05-05] MEDS ORDERED: OXYCODONE/APAP 5/325 TAB PO ONE (13:45)
[2025-05-05] MEDS ORDERED: DEXAMETHASONE SOD PHOS 10 MG/ML VIAL IV ONE (14:00)
[2025-05-05] MEDS ORDERED: ZITHROMAX250 MG PO (15:44)
[2025-05-05] MEDS ORDERED: AZITHROMYCIN 250 MG TAB PO ONE (15:45)
[2025-05-05 16:20] VITALS: BP 127/62
[2025-06-13] MEDS ORDERED: CYCLOBENZAPRINE10 MG PO (10:10)
== END 2025-05-05 15:54 | disposition home or self-care (01) ==
LOC: ED 10:43
PROVIDERS: Emergency Medicine
DX: S52.122A Displaced fracture of head of left radius, initial encounter for closed fracture (principal); E11.9 Type 2 diabetes mellitus without complications; J18.9 Pneumonia, unspecified organism; M25.561 Pain in right knee; M25.512 Pain in left shoulder; W01.0XXA Fall on same level from slipping, tripping and stumbling without subsequent striking against object, initial encounter; Z79.82 Long term (current) use of aspirin; Z79.899 Other long term (current) drug therapy; Z91.041 Radiographic dye allergy status; Z91.040 Latex allergy status; Z88.0 Allergy status to penicillin; Z88.1 Allergy status to other antibiotic agents; Z88.8 Allergy status to other drugs, medicaments and biological substances; Z87.891 Personal history of nicotine dependence
CPT/HCPCS: 36415; 71260; 73030; 73080; 73560; 80053; 82803; 83880; 84484; 85025; 96374; 96375; 99284-25; A9270; J1100; J1200; Q9967